=== PATIENT | female | born 1990 | race Two or more races ===

== ENCOUNTER 2023-10-10 07:48 | Outpatient (CLI) | payer OTHER | END 2023-10-10 07:57 | disposition home or self-care (01) | LOC: SONOGRAMA 07:48 | DX: R10.13 Epigastric pain (principal); R10.11 Right upper quadrant pain ==

== ENCOUNTER → 2023-10-24 11:45 | Outpatient (CLI) | payer OTHER | END | disposition home or self-care (01) | LOC: SONOGRAMA 11:45 | PROVIDERS: ATTEND Pediatrics | DX: R10.13 Epigastric pain (principal); R10.11 Right upper quadrant pain ==

== ENCOUNTER 2024-02-28 10:04 | Outpatient (CLI) | payer OTHER | END 2024-02-28 10:17 | disposition home or self-care (01) | LOC: RAD 10:04 | DX: M25.562 Pain in left knee (principal) ==

== ENCOUNTER 2024-05-06 09:04 | Outpatient (CLI) | payer OTHER | END 2024-05-06 09:17 | disposition home or self-care (01) | LOC: MRI 09:04 | DX: M25.562 Pain in left knee (principal) | CPT/HCPCS: 73721 ==

== ENCOUNTER 2024-11-19 16:29 | Inpatient (IN) | payer OTHER ==
[~2024-11-19] VITALS: Ht 154.9 cm; Wt 69.4 kg
[~2024-11-19 16:29] MED LIST: ANUSOL-HC25 MG RECTAL
--- NOTE | 2024-11-19 16:39 | NUR ---
PACIENTE ALERTA Y ORIENTADA X 3. REFIERE 2 SEMANAS CON DOLOR EN LADO DERECHO ENTRE COSTADO Y ABDOMEN.
[2024-11-19] MEDS ORDERED: FAMOTIDINE/PF 20 MG/2 ML VIAL IV ONE (17:15)
[2024-11-19] MEDS ORDERED: ONDANSETRON HCL 2 MG/ML VIAL IV ONE (17:15)
[2024-11-19] MEDS ORDERED: ONDANSETRON HCL 2 MG/ML VIAL ONE (17:39)
[2024-11-19] MEDS ORDERED: FAMOTIDINE/PF 20 MG/2 ML VIAL ONE ×2 (17:40→23:39)
[2024-11-19 17:43] LABS: BASO % 0.5 % (0.1-1.2); EOS # 0.18 (0.04-0.54); EOS % 1.7 % (0.7-7.0); LYMPH # 2.65 (1.18-3.74); LYMPH % 25.6 % (19.3-53.1); MEAN PLATELET VOLUME 10.40 fl (9.4-12.4); MONO # 0.67 (0.24-0.82); MONO % 6.5 % (4.7-12.5); NEUT # 6.76 (1.56-6.13); NEUT % 65.4 % (34.0-71.1); RED CELL DISTRIBUTION WIDTH 12.7 % (11.6-14.4)
--- NOTE | 2024-11-19 17:52 | NUR ---
SE ORIENTA A PACIENTE SOBRE TRATAMIENTO MEDICO, REFIERE ENTENDER. SE REALIZAN MUESTRAS DE LABORATORIO BAJO MEDIDAS ASEPTICAS. SE ADMINISTRAN MEDICAMENTOS TAYLOR ORDEN MEDICA. SE COORDINA SONOGRAMA. PACIENTE MANEJADA POR .
[2024-11-19 17:57] LABS: URINE APPEARANCE Clear; URINE BILIRRUBIN Negative (NEGATIVE); URINE BLOOD NHT; URINE COLOR Yellow; URINE GLUCOSE Negative (NEGATIVE); URINE KETONE Negative (NEGATIVE); URINE LEUKOCYTE Negative; URINE NITRATE Negative; URINE PROTEIN Negative (NEGATIVE); URINE UROBILINOGEN 1.0 E.U./dl
[2024-11-19 18:01] LABS: URINE BACTERIA 381.6 uL (0.0-1933); URINE EPITHELIAL CELLS 18.7 uL (0.0-38.8); URINE RBC 43.9 uL (0.0-20.8); URINE WBC 7.3 uL (0.0-23.2)
[2024-11-19 18:13] LABS: INR 0.99
[2024-11-19 18:27] LABS: ALT/SGPT 23.0 U/L (12-78); AST/SGOT 18.0 U/L (15-37); BILIRUBIN TOTAL 0.46 mg/dL (0.3-1.2); BILIRUBIN,CONJUGATED 0.12 mg/dL (0.0-0.2); BUN CREA RATIO 14.0 (7.0-25.0); CREATININE SERUM 0.76 mg/dL (0.55-1.02); GFR 87.11; GLOBULINA 3.8 G/DL (2.4-3.5); GLUCOSE FASTING 89.0 mg/dL (65-100); OSMOLALITY SERUM 282.0 MOSM/KG (275-295)
[2024-11-19 18:43] LABS: URINE CAST 0.00 uL (0.0-1.40)
[2024-11-19] MEDS ORDERED: KETOROLAC TROMETHAMINE 30 MG VIAL IV ONE (21:15)
[2024-11-19] MEDS ORDERED: KETOROLAC TROMETHAMINE 30 MG VIAL ONE (21:23)
[2024-11-19] MEDS ORDERED: 0.9 % SODIUM CHLORIDE 500 ML IV ONE (21:30)
--- NOTE | 2024-11-19 21:40 | NUR ---
SE ADMINISTRA [place] TAYLOR ORDEN MEDICA Y SE ORIENTA PTE QUIEN REFIERE ENTENDER Y ACEPTAR
[2024-11-19] MEDS ORDERED: CIPROFLOXACIN IN 5 % DEXTROSE 200 ML IV SCH (21:55)
[2024-11-19] MEDS ORDERED: FAMOTIDINE/PF 20 MG in 0.9 % SODIUM CHLORIDE 8 ML IV PUSH SCH (21:58)
[2024-11-19] MEDS ORDERED: MORPHINE SULFATE 2 MG/ML SYRINGE IV PRN (22:00)
[2024-11-19] MEDS ORDERED: ONDANSETRON HCL 4 MG in 0.9 % SODIUM CHLORIDE 50 ML IV PRN (22:00)
[2024-11-19] MEDS ORDERED: ACETAMINOPHEN 325 MG TABLET PO PRN (22:00)
[2024-11-19] MEDS ORDERED: 0.9 % SODIUM CHLORIDE 1,000 ML IV SCH (22:00)
[2024-11-20 00:27] VITALS: BP 126/81
[2024-11-20 00:35] LABS: ALT/SGPT 23 U/L (12-78); AST/SGOT 16 U/L (15-37); BILIRUBIN TOTAL 0.62 mg/dL (0.3-1.2); BILIRUBIN,CONJUGATED 0.17 mg/dL (0.0-0.2)
[2024-11-20 02:09] VITALS: BP 95/62; O2SAT 99
[2024-11-20] MEDS ORDERED: ACETAMINOPHEN 500 MG GEL..CAP PO PRN (07:30)
[2024-11-20 08:00] VITALS: BP 109/64
[2024-11-20 16:55] VITALS: BP 96/59; O2SAT 98
[2024-11-21] VITALS: BP 108/63; O2SAT 99
[2024-11-21 08:26] VITALS: BP 102/64; O2SAT 98
[2024-11-21] MEDS ORDERED: SUGAMMADEX SODIUM 200 MG/2 ML VIAL IV ONE (13:28)
[2024-11-21 16:00] VITALS: BP 120/74; O2SAT 96
[2024-11-22] VITALS: BP 132/68; O2SAT 99
[2024-11-22 07:32] LABS: BASO % 0.3 % (0.1-1.2); EOS # 0.08 (0.04-0.54); EOS % 0.8 % (0.7-7.0); LYMPH # 1.72 (1.18-3.74); LYMPH % 17.8 % (19.3-53.1); MEAN PLATELET VOLUME 10.70 fl (9.4-12.4); MONO # 0.66 (0.24-0.82); MONO % 6.8 % (4.7-12.5); NEUT # 7.16 (1.56-6.13); NEUT % 74.1 % (34.0-71.1); RED CELL DISTRIBUTION WIDTH 12.6 % (11.6-14.4)
[2024-11-22 08:00] VITALS: BP 96/60; O2SAT 97
[2024-11-22 16:00] VITALS: BP 106/73; O2SAT 98
[2024-11-23 00:24] VITALS: BP 90/57; O2SAT 97
[2024-11-23 08:00] VITALS: BP 100/80; O2SAT 97
[2024-11-23 16:00] VITALS: BP 110/73; O2SAT 99
== END 2024-11-23 20:53 | disposition home or self-care (01) | DRG 418 ==
LOC: ER 16:29 → SEC-K 22:20 → SURG 22:20 → SURH 11-22 14:15
PROVIDERS: General Practice; Specialist; Student in an Organized Health Care Education/Training Program; ADMIT Internal Medicine; ATTEND Internal Medicine
PROC: BW40ZZZ Ultrasonography of Abdomen (ICD-10-PCS; 2024-11-19)
PROC: 0FT44ZZ Resection of Gallbladder, Percutaneous Endoscopic Approach (ICD-10-PCS; principal; 2024-11-21 07:00)
DX: K80.10 Calculus of gallbladder with chronic cholecystitis without obstruction (principal); K62.5 Hemorrhage of anus and rectum; J02.8 Acute pharyngitis due to other specified organisms; R10.11 Right upper quadrant pain; D72.829 Elevated white blood cell count, unspecified